=== PATIENT | male | born 1950 | race Caucasian/White ===

== ENCOUNTER 2019-08-21 08:52 | Observation (INO) | payer MEDICARE, BC ==
[2019-08-21] MEDS ORDERED: Nitroglycerin 0.4 MG Tab.SL SL PRN (09:11)
[2019-08-21 09:21] LABS: CHLORIDE,CL 106 mEq/L (98-106); PTT,PARTIAL THROMBOPLSTIN TIME 25.2 SEC (23.2-32.3); SODIUM,NA 143 mEq/L (136-145)
--- NOTE | 2019-08-21 09:29 | EDM.PDOC ---
ED HPI GENERAL MEDICAL PROBLEM - General Chief Complaint: Chest Pain Stated Complaint: ?HEART ATTACK Time Seen by Provider: 08/21/19 09:00 Source of Information: Reports: Patient History Limitations: Reports: No Limitations - History of Present Illness INITIAL COMMENTS - FREE TEXT/NARRATIVE: This patient is a 68 year old male that reports at about 8am working on motor. He reports his right arm began to feel heavy, numb. He reports then he had mile shortness of breath, nausea, generally not feeling well, like something was wrong. Patient reports once patient got back into the house he was diaphoretic. The patient reports currently in ER he feels mildly short of breath , and numbness/heaviness to the RUE. Onset: Today Onset Date: 08/21/19 Onset Time: 08:00 Location: Reports: Upper Extremity, Right Quality: Reports: Other ("numbness, heaviness") Severity: Moderate Improves with: Reports: None Worsens with: Reports: None Associated Symptoms: Reports: Diaphoresis, Malaise, Nausea/Vomiting, Shortness of Breath, Weakness ("heaviness" RUE). Denies: Confusion, Chest Pain, Cough, cough w sputum, Fever/Chills, Headaches, Loss of Appetite, Rash, Seizure, Syncope Treatments CUSTOMER CARE MANAGER: Reports: Aspirin (325mg per ) - Related Data Allergies Allergy/AdvReac Type Severity Reaction Status Date / Time No Known Allergies Allergy Verified 02/10/16 11:34 Home Meds: Home Meds Magnesium Oxide [Magnesium] 500 mg PO DAILY 04/14/15 [History] Ubidecarenone [COQ-10] 30 mg PO DAILY 04/14/15 [History] Ascorbic Acid [Vitamin C] 1 tab PO DAILY 02/10/16 [History] Calcium Carbonate [Tums] 500 mg PO TID PRN 02/10/16 [History] Cholecalciferol (Vitamin D3) [Vitamin D3] 4,000 units PO DAILY 02/10/16 [History ] Amino Acids [Amino Acid] 1 cap PO DAILY 08/21/19 [History] Metoprolol Succinate 50 mg PO DAILY 08/21/19 [History] Rosuvastatin Calcium [Crestor] 40 mg PO DAILY 08/21/19 [History] Past Medical History Cardiovascular History: Reports: CAD, High Cholesterol, Hypertension Gastrointestinal History: Reports: Diverticulosis Oncologic (Cancer) History: Reports: Prostate - Past Surgical History GI Surgical History: Reports: Appendectomy, Hernia Repair/Other Male Surgical History: Reports: Prostatectomy Social & Family History - Tobacco Use Smoking Status *Q: Never Smoker - Caffeine Use Caffeine Use: Reports: Coffee - Recreational Drug Use Recreational Drug Use: No ED ROS GENERAL - Review of Systems Review Of Systems: See Below Constitutional: Reports: Malaise, Fatigue, Diaphoresis HEENT: Reports: No Symptoms Respiratory: Reports: Shortness of Breath. Denies: Wheezing, Pleuritic Chest Pain, Cough, Sputum, Hemoptysis Cardiovascular: Denies: Chest Pain, Dyspnea on Exertion, Edema, Lightheadedness , Palpitations, Syncope Endocrine: Reports: No Symptoms GI/Abdominal: Reports: Nausea. Denies: Abdominal Pain, Diarrhea, Vomiting : Reports: No Symptoms Musculoskeletal: Reports: Arm Pain (Right arm numbness, heaviness from anterior shoulder down to hand. ) Skin: Reports: No Symptoms Neurological: Reports: Numbness (RUE anterior shoulder to hand), Weakness ( "heaviness" RUE). Denies: Confusion, Dizziness, Headache, Pre-Existing Deficit , Seizure, Syncope, Tremors, Trouble Speaking, Difficulty Walking, Change in Speech, Gait Disturbance Psychiatric: Reports: No Symptoms Hematologic/Lymphatic: Reports: No Symptoms Immunologic: Reports: No Symptoms ED EXAM, GENERAL - Physical Exam Exam: See Below Exam Limited By: No Limitations General Appearance: Alert, WD/WN, No Apparent Distress Eye Exam: Bilateral Eye: Normal Inspection, PERRL Ears: Normal External Exam, Normal Canal, Hearing Grossly Normal, Normal TMs Ear Exam: Bilateral Ear: Auricle Normal, Canal Normal, TM normal Nose: Normal Inspection, Normal Mucosa, No Blood Throat/Mouth: Normal Inspection, Normal Lips, Normal Teeth, Normal Gums, Normal Oropharynx, Normal Voice, No Airway Compromise Head: Atraumatic, Normocephalic Neck: Normal Inspection, Supple, Non-Tender, Full Range of Motion. No: Limited Range of Motion, Lymphadenopathy (L), Lymphadenopathy (R), Tender Lateral, Tender Midline Respiratory/Chest: No Respiratory Distress, Lungs Clear, Normal Breath Sounds, No Accessory Muscle Use, Chest Non-Tender. No: Respiratory Distress, Decreased Breath Sounds, Accessory Muscle Use Cardiovascular: Normal Peripheral Pulses, Regular Rate, Rhythm, No Edema, No Gallop, No JVD, No Murmur, No Rub Peripheral Pulses: 2+: Radial (L), Radial (R), Posterior Tibial (L), Posterior Tibial (R) GI/Abdominal: Normal Bowel Sounds, Soft, Non-Tender, No Organomegaly, No Distention, No Abnormal Bruit, No Mass, Pelvis Stable Back Exam: Normal Inspection, Full Range of Motion. No: Decreased Range of Motion, Muscle Spasm, Paraspinal Tenderness, Vertebral Tenderness Extremities: Normal Inspection, Normal Range of Motion, Non-Tender, No Pedal Edema, Normal Capillary Refill, Other (I can not manipulate his numbness to RUE) Neurological: Alert, Oriented, Normal Cognition, Normal Gait, No Motor/Sensory Deficits, Sensory/Motor Deficit (Very Mild sensation deficit to Right hand. Stroke score is 1, due to this. GCS 15. ) Psychiatric: Normal Affect, Normal Mood Skin Exam: Warm, Dry, Intact, Normal Color, No Rash Lymphatic: No Adenopathy EKG INTERPRETATION EKG Date: 08/21/19 Time: 08:55 Rhythm: NSR Rate (Beats/Min): 63 [place]: Normal P-Wave: Present QRS: Normal ST-T: Normal QT: Normal Course - Vital Signs Last Recorded V/S: Last Vital Signs Temp 97.4 F 08/21/19 08:55 Pulse 52 L 08/21/19 11:14 Resp 16 08/21/19 08:55 BP 161/96 H 08/21/19 11:14 Pulse Ox 95 08/21/19 08:55 - Orders/Labs/Meds Orders: Active Orders 24 hr Category Date Time Status Ang Chest [CT] Stat Exams 08/21/19 09:23 Taken CTA Abd Pelv w Cont [CT] Stat Exams 08/21/19 09:23 Taken Chest 2V [CR] Stat Exams 08/21/19 09:10 Taken Head wo Cont [CT] Stat Exams 08/21/19 09:10 Taken Nitroglycerin [Nitrostat] Med 08/21/19 09:11 Active 0.4 mg SL Q5M PRN Medication Orders Nitroglycerin (Nitrostat) 0.4 mg SL Q5M PRN PRN Reason: Chest Pain Last Admin: 08/21/19 11:14 Dose: 0.4 mg Labs: Laboratory Tests 08/21/19 08/21/19 08/21/19 Range/Units 09:00 09:00 09:00 WBC 7.2 (5.0-10.0) 10^3/uL RBC 5.31 (4.50-6.00) 10^6/uL Hgb 17.0 (14.0-18.0) g/dL Hct 48.1 (40.0-54.0) % MCV 90.6 (82.0-94.0) fL MCH 32.0 (27.0-32.0) pg MCHC 35.3 (33.0-38.0) g/dL RDW Coeff of Gavino 14.1 (11.0-15.0) % Plt Count 256 (150-400) 10^3/uL Neut % (Auto) 69.0 (35-85) % Lymph % (Auto) 18.7 (10-55) % [place] % (Auto) 11.2 (0-16) % Eos % (Auto) 1.0 (0-5) % Baso % (Auto) 0.1 (0-3) % Neut # (Auto) 4.94 (1.80-7.00) 10^3/uL Lymph # (Auto) 1.34 (1.00-4.80) 10^3/uL [place] # (Auto) 0.80 (0.00-0.80) 10^3/uL Eos # (Auto) 0.07 (0.00-0.45) 10^3/uL Baso # (Auto) 0.01 10^3/uL PT 10.4 (9.7-12.3) SEC INR 1.03 (0.92-1.18) APTT 25.2 (23.2-32.3) SEC Sodium 143 (136-145) mEq/L Potassium 3.7 (3.5-5.0) mEq/L Chloride 106 (98-106) mEq/L Carbon Dioxide 28 (21-32) mmol/L BUN 21 H (7-18) mg/dL Creatinine 1.1 (0.7-1.3) mg/dL Est Cr Clr Drug Dosing 80.01 mL/min Estimated GFR (MDRD) > 60 (>=60) mL/min Glucose 121 H (75-99) mg/dL Calcium 9.0 (8.4-10.1) mg/dL Total Bilirubin 0.6 (0.0-1.0) mg/dL AST 15 (15-37) U/L ALT 26 (12-78) U/L Alkaline Phosphatase 57 (46-116) U/L Lactate Dehydrogenase 185 (100-190) U/L Creatine Kinase 145 (35-232) U/L Troponin I < 0.017 (0.00-0.06) ng/mL Total Protein 6.9 (6.4-8.2) g/dL Albumin 3.5 (3.4-5.0) g/dL Lipase (73-393) U/L 08/21/19 08/21/19 Range/Units 09:37 11:30 WBC (5.0-10.0) 10^3/uL RBC (4.50-6.00) 10^6/uL Hgb (14.0-18.0) g/dL Hct (40.0-54.0) % MCV (82.0-94.0) fL MCH (27.0-32.0) pg MCHC (33.0-38.0) g/dL RDW Coeff of [place]avino (11.0-15.0) % Plt Count (150-400) 10^3/uL Neut % (Auto) (35-85) % Lymph % (Auto) (10-55) % [place] % (Auto) (0-16) % Eos % (Auto) (0-5) % Baso % (Auto) (0-3) % Neut # (Auto) (1.80-7.00) 10^3/uL Lymph # (Auto) (1.00-4.80) 10^3/uL [place] # (Auto) (0.00-0.80) 10^3/uL Eos # (Auto) (0.00-0.45) 10^3/uL Baso # (Auto) 10^3/uL PT (9.7-12.3) SEC INR (0.92-1.18) APTT (23.2-32.3) SEC Sodium (136-145) mEq/L Potassium (3.5-5.0) mEq/L Chloride (98-106) mEq/L Carbon Dioxide (21-32) mmol/L BUN (7-18) mg/dL Creatinine (0.7-1.3) mg/dL Est Cr Clr Drug Dosing mL/min Estimated GFR (MDRD) (>=60) mL/min Glucose (75-99) mg/dL Calcium (8.4-10.1) mg/dL Total Bilirubin (0.0-1.0) mg/dL AST (15-37) U/L ALT (12-78) U/L Alkaline Phosphatase (46-116) U/L Lactate Dehydrogenase (100-190) U/L Creatine Kinase (35-232) U/L Troponin I < 0.017 (0.00-0.06) ng/mL Total Protein (6.4-8.2) g/dL Albumin (3.4-5.0) g/dL Lipase 146 (73-393) U/L Meds: Medications Generic Name Dose Route Start Last Admin Trade Name Freq PRN Reason Stop Dose Admin Nitroglycerin 0.4 mg 08/21/19 09:11 08/21/19 11:14 Nitrostat SL 0.4 mg Q5M PRN Administration Chest Pain Discontinued Medications Generic Name Dose Route Start Last Admin Trade Name Freq PRN Reason Stop Dose Admin Sodium Chloride 1,000 mls @ 1,000 mls/hr 08/21/19 09:35 08/21/19 09:56 Normal Saline IV 08/21/19 10:34 1,000 mls/hr .BOLUS ONE Administration Iopamidol 100 ml 08/21/19 09:31 08/21/19 09:41 Isovue-370 (76%) IVPUSH 08/21/19 09:32 100 ml ONETIME ONE Administration - Radiology Interpretation Free Text/Narrative:: CXR: No acute findings Head Ct: No acute findings CT Results Date: 08/21/19 CT Results Time: 10:10 - Re-Assessments/Exams Free Text/Narrative Re-Assessment/Exam: 08/21/19 09:28 Nitro was ordered, but asked RN to hold and not give yet. I want to do a CTA of chest to r/o AAA. Patient arrived HTN and with right arm heaviness, pain/ numbness needs to be excluded. CR is wnl, will angio. Patient explained risk vs benefits and accepts. 08/21/19 09:33 Patient reports that his last stress test was in 2015. Patient reports history of HTN. No smoker, no drinker. Patient HEART score is 4 based on history of presentation, history of risk factors, and age. 08/21/19 10:45 Patient numbness 1/10 RUE. No heaviness in RUE now per patient. 08/21/19 11:38 Patient reports that his numbness is either 0/1 hard to tell per patient. No heaviness anymore. After nitro. 08/21/19 12:[address] Jackson, will admit and he will schedule stress test for tomorrow. Departure - Departure Time of Disposition: 12:15 Disposition: Home, Self-Care 01 Condition: Fair Clinical Impression: Acute coronary syndrome, Atypical chest pain Forms: ED Department Discharge Sepsis Event Note (ED) - Evaluation Sepsis Screening Result: No Definite Risk - Focused Exam Vital Signs: Vital Signs Temp Pulse Pulse Resp BP BP Pulse Ox 08/21/19 11:14 52 L 161/96 H 08/21/19 08:55 97.4 F 62 16 163/95 H 95 - My Orders Last 24 Hours: My Active Orders 08/21/19 09:10 Chest 2V [CR] Stat Head wo Cont [CT] Stat 08/21/19 09:11 Nitroglycerin [Nitrostat] 0.4 mg SL Q5M PRN 08/21/19 09:23 Ang Chest [CT] Stat CTA Abd Pelv w Cont [CT] Stat - Assessment/Plan Last 24 Hours: My Active Orders 08/21/19 09:10 Chest 2V [CR] Stat Head wo Cont [CT] Stat 08/21/19 09:11 Nitroglycerin [Nitrostat] 0.4 mg SL Q5M PRN 08/21/19 09:23 Ang Chest [CT] Stat CTA Abd Pelv w Cont [CT] Stat Plan: PLEASE SEE RN NOTE FOR PFSH PLEASE USE ADMIT H&P ADMIT H&P.
[2019-08-21] MEDS ORDERED: Iopamidol 755 Mg/ML 100 ML Bottle IVPUSH ONE (09:31)
[2019-08-21] MEDS ORDERED: Sodium Chloride 0.9% 1,000 ML IV ONE (09:35)
[2019-08-21] MEDS ORDERED: Ondansetron 4 MG/2 ML SDV IV PRN (12:53)
[2019-08-21] MEDS: Nitroglycerin 2% Oint 1 GM UD Packet TOP SCH ×2 (13:39→20:37)
[2019-08-21] MEDS ORDERED: CALCIUM CARBONATE 500 MG PO PRN (14:30)
[2019-08-21] MEDS: Acetaminophen 325 MG Tab PO PRN (19:49)
[2019-08-22] MEDS: Acetaminophen 325 MG Tab PO PRN (01:54)
[2019-08-22] MEDS: Nitroglycerin 2% Oint 1 GM UD Packet TOP SCH (05:06)
[2019-08-22 07:33] LABS: CHLORIDE,CL 104 mEq/L (98-106); SODIUM,NA 139 mEq/L (136-145)
[2019-08-22] MEDS ORDERED: CHOLECALCIFEROL 4000 UNIT PO SCH (08:00)
[2019-08-22] MEDS ORDERED: ROSUVASTATIN 40 MG PO SCH ×2 (08:00→10:50)
[2019-08-22] MEDS ORDERED: AMINO ACIDS PO SCH (08:00)
[2019-08-22] MEDS ORDERED: ASCORBIC ACID PO SCH (08:00)
[2019-08-22] MEDS ORDERED: UBIDECARENONE 30 MG PO SCH (08:00)
[2019-08-22] MEDS ORDERED: METOPROLOL SUCCINATE 50 MG PO SCH (08:00)
[2019-08-22 08:03] VITALS: BP 140/92; PULSE 59
--- NOTE | 2019-08-22 15:56 | DISCH ---
ADMISSION DIAGNOSES: 1. Right upper extremity paresthesias/pain. 2. Questionable cardiovascular ischemia, rule out protocol. 3. Hyperlipidemia. DISCHARGE DIAGNOSIS: 1. RIGHT UPPER EXTREMITY PARESTHESIAS, RESOLVED. 2. HYPERLIPIDEMIA. HISTORY: The patient is a 68-year-old male with known hyperlipidemia. He was out working in his yard doing aggressive lifting and started having some numbness and tingling from the shoulder down to the hand on his right arm. It felt heavy and a little bit weak. He had no headache with it. No leg symptoms. He had no facial droop or other signs of stroke. Apparently, he felt a little general weakness and diaphoresis according to his , although the patient really did not describe that, and he was seen by Arun Bolivar in our emergency room. He had EKG and appropriate lab work. EKG was normal. Troponin was negative. He ended up having a CT scan of his head which was unremarkable along with a CT of his abdomen looking for a AAA apparently which was also negative. He ultimately was markedly better by the time he got to our facility. It is worthy to note, he does have some neck stiffness as well. This certainly sounds like it might have been a radicular complaint down his arm. He was ultimately admitted by Arun Bolivar for a cardiac rule out protocol and ongoing monitoring. HOSPITAL COURSE: The patient has really been fine since he has been here. He has had some more baseline bradycardia in the 50s. He has been afebrile. Blood pressures have been borderline, but stable. For the most part, he has gotten along well and has had no further symptoms in his right upper extremity. He was given a full aspirin by his en route to our facility and that has been continued. He is ruled out for an acute coronary event with negative troponins and EKGs. He had a stress test on the morning of discharge. He went 9 minutes and 15 seconds into treadmill stage 4 without EKG changes. No chest pain. The patient's blood pressure has been improved. He was given topical nitroglycerin by Arun Bolivar on admit and we will send him home on low-dose beta-florencio and he should have follow up with his primary physician, Dr. Vega for titration of that. I will continue him on a daily aspirin. I do recommend he has a followup MRI of his head to rule out a TIA. He did have a carotid ultrasound which showed less than 50% narrowing of both internal carotid arteries. At this time, he is completely asymptomatic. I will have him follow up with Dr. Neto Vega this upcoming for recheck and consideration for blood pressure titration and MRI of the brain. COMPLICATIONS: During his stay were none. COMPLICATIONS: None. PROCEDURES: 1. Standard Ike stress test. 2. Carotid ultrasound. 3. CT head. 4. CT abdomen. DISPOSITION: Discharged home. ANAIS/MAITE /[id number]
--- NOTE | 2019-08-22 23:24 | OR ---
DATE OF OPERATION: 08/22/2019 PREOPERATIVE DIAGNOSIS: 1. RIGHT ARM PAIN. 2. ATYPICAL CHEST PAIN. POSTOPERATIVE DIAGNOSIS: 1. RIGHT ARM PAIN. 2. ATYPICAL CHEST PAIN. SURGEON: Darshan Jackson MD PROCEDURE: STANDARD IKE STRESS TEST. DESCRIPTION OF PROCEDURE: The patient was stressed for the above-noted complaints. Standard Ike stress test was accomplished in usual fashion over a 9-minute and 15- second time period. The patient was able to achieve target heart rate with a max heart rate of 133, max BP of 170/80, both were appropriate responses. He did exceed target heart rate and achieved a max workload of 10.8 METS. The test was stopped due to leg fatigue. He had no chest pain during the testing phase. At maximal exercise, there were no exercise-induced arrhythmias. All ST-segments were upsloping, there were no signs of ischemia, and this was an adequate and negative standard Ike stress test. ANAIS/ONURL /[id number]
[2019-08-23] MEDS ORDERED: Metoprolol Succinate 50 MG Tab.ER **PTOM PO SCH (08:00)
== END 2019-08-22 11:30 | disposition home or self-care (01) ==
LOC: CC.ED 08:52 → CC.MS 12:19 → UNDOADMOB 12:19 → CC.MS 12:20
PROVIDERS: ADMIT Nurse Practitioner; ATTEND Family Medicine
DX: R20.2 Paresthesia of skin (principal); E78.5 Hyperlipidemia, unspecified; R07.89 Other chest pain; E78.00 Pure hypercholesterolemia, unspecified; I65.29 Occlusion and stenosis of unspecified carotid artery; I10 Essential (primary) hypertension; Z79.899 Other long term (current) drug therapy
CPT/HCPCS: 36415; 70450; 71046; 71275; 74174; 80048; 80053; 82550; 83615; 83690; 84484; 85025; 85610; 85730; 93005; 93017; 93880; 96360; 99285; A9270; G0378; J7030; Q9967; 93010; 99217; 99220

== ENCOUNTER 2021-08-20 15:58 | Emergency (ER) | payer MEDICARE, BC ==
[2021-08-20] MEDS ORDERED: Sodium Chloride 0.9% 10 ML Syringe FLUSH PRN (16:39)
[2021-08-20] MEDS: Aspirin 81 MG Tab.Chew PO ONE (16:40)
[2021-08-20 17:10] LABS: PTT,PARTIAL THROMBOPLSTIN TIME 24.5 SEC (23.2-32.3)
[2021-08-20 17:25] VITALS: BP 150/99; PULSE 58
== END 2021-08-20 17:55 | disposition home or self-care (01) ==
LOC: CC.ED 15:58
DX: R07.2 Precordial pain (principal); F41.9 Anxiety disorder, unspecified; I25.10 Atherosclerotic heart disease of native coronary artery without angina pectoris; E78.00 Pure hypercholesterolemia, unspecified; I10 Essential (primary) hypertension; Z86.16 Personal history of COVID-19; Z79.82 Long term (current) use of aspirin; Z79.899 Other long term (current) drug therapy; Z20.822 Contact with and (suspected) exposure to COVID-19
CPT/HCPCS: 36415; 71045; 80053; 82150; 82550; 83615; 83690; 83735; 84484; 85025; 85379; 85610; 85730; 93005; 99284; 99285-25; A9270-GY; U0002